=== PATIENT | female | born 1950 | race Caucasian/White ===

== ENCOUNTER → 2021-12-02 13:45 | Outpatient (BNVA) | payer MEDICARE, OTHER, SELFPAY | PROVIDERS: Family Provider Family Medicine; PCP Family Medicine; Visit Provider Clinical Nurse Specialist Adult Health | DX: N39.0 Urinary tract infection, site not specified (principal) | CPT/HCPCS: 81000; 87077; 87086; 87184 ==

== ENCOUNTER → 2022-08-18 12:06 | Outpatient (BNVA) | payer MEDICARE, OTHER, SELFPAY | PROVIDERS: Family Provider Family Medicine; PCP Family Medicine; Visit Provider Nurse Practitioner Family | DX: M79.671 Pain in right foot (principal) | CPT/HCPCS: 73630 ==

== ENCOUNTER → 2022-09-30 10:04 | Outpatient (BNVA) | payer MEDICARE, OTHER, SELFPAY | PROVIDERS: Family Provider Family Medicine; PCP Family Medicine; Visit Provider Specialist | DX: M79.671 Pain in right foot (principal); M25.571 Pain in right ankle and joints of right foot | CPT/HCPCS: 73630; 99204 ==

== ENCOUNTER → 2022-10-05 12:04 | Outpatient (BNVA) | payer MEDICARE, OTHER, SELFPAY | PROVIDERS: Family Provider Family Medicine; PCP Family Medicine; Visit Provider Family Medicine | DX: R00.2 Palpitations (principal); I10 Essential (primary) hypertension; E78.5 Hyperlipidemia, unspecified | CPT/HCPCS: 80053; 80061; 83735; 84443; 85025 ==

== ENCOUNTER 2022-10-07 07:17 | Outpatient (CLI) | payer MEDICARE, OTHER, SELFPAY ==
--- NOTE | 2022-10-07 07:30 | CT_ITS ---
WS: [id number] CT RIGHT FOOT, NONCONTRAST. HISTORY: right foot pain Technique: All CT scans at [facility] use at least one of these dose optimization techniques: automated exposure control; mA and/or kV adjustment per patient size (includes targeted exams where dose is matched to clinical indication); or iterative reconstruction. DLP: 109.85 mGy.cm COMPARISON: 09/30/2022 No acute fractures. No dislocation. No osteochondral lesions involving the talar dome. Normal tibiota lar alignment. There is a small calcaneal spur measuring 5 mm. No joint effusion. No significant soft tissue edema surrounding the foot. No foreign body. No widening of the Lisfranc joint. CT/CT foot RT wo con* [id number] IMPRESSION: 1. Unremarkable CT RIGHT foot. No acute findings identified. 2. No bony subluxation. 3. Small calcaneal spur.
== END 2022-10-07 07:18 | disposition home or self-care (01) ==
LOC: RAD 07:24
PROVIDERS: Family Provider Family Medicine; PCP Family Medicine; Visit Provider Specialist
DX: M79.671 Pain in right foot (principal); M77.31 Calcaneal spur, right foot
CPT/HCPCS: 73700

== ENCOUNTER → 2022-10-21 15:01 | Outpatient (BNVA) | payer MEDICARE, OTHER, SELFPAY | PROVIDERS: Family Provider Family Medicine; PCP Family Medicine; Visit Provider Specialist | DX: M25.571 Pain in right ankle and joints of right foot (principal) | CPT/HCPCS: 99213 ==

== ENCOUNTER 2022-11-20 10:20 | Outpatient (RCR) | payer MEDICARE, OTHER, SELFPAY | END 2022-11-20 23:59 | disposition home or self-care (01) | LOC: SPT 10:20 | PROVIDERS: PCP Specialist; Visit Provider Specialist | DX: M79.671 Pain in right foot (principal) | CPT/HCPCS: 97140; 97161 ==

== ENCOUNTER → 2023-01-08 08:26 | Outpatient (BNVA) | payer MEDICARE, OTHER, SELFPAY | PROVIDERS: PCP Family Medicine; Visit Provider Family Medicine | DX: G25.81 Restless legs syndrome (principal); M79.606 Pain in leg, unspecified; D64.9 Anemia, unspecified; M89.8X9 Other specified disorders of bone, unspecified site; R32 Unspecified urinary incontinence | CPT/HCPCS: 80048; 81000; 82306; 82728; 83735 ==

== ENCOUNTER 2023-04-09 09:05 | Outpatient (CLI) | payer MEDICARE, OTHER, SELFPAY ==
--- NOTE | 2023-04-09 09:30 | US_ITS ---
WS: [id number] THYROID ULTRASOUND HISTORY: globus sensation COMPARISON: None available. Right lobe: 1.2 cm x 1.6 cm x 3.6 cm (w x ap x l). Volume: 3.7 cm3. Normal size and mild heterogeneous echotexture. No significant or dominant nodules are present. Left lobe: 1.0 cm x 1.4 cm x 3.7 cm (w x ap x l). Volume: 2.6 cm3. Mild heterogeneity and lobulation. No discrete mass. No increased vascularity. Isthmus: 0.3 cm. IMPRESSION: 1. Mild heterogeneity within the thyroid gland. There is no mass or nodule. 2. No increased vascularity.
== END 2023-04-09 09:06 | disposition home or self-care (01) ==
LOC: RAD 09:06
PROVIDERS: PCP Family Medicine; Visit Provider Family Medicine
DX: R09.A2 Foreign body sensation, throat (principal)
CPT/HCPCS: 76536

== ENCOUNTER → 2023-04-20 11:04 | Outpatient (BNVA) | payer MEDICARE, OTHER, SELFPAY | PROVIDERS: PCP Family Medicine; Referring Provider Family Medicine; Visit Provider Surgery | DX: R09.A2 Foreign body sensation, throat (principal) | CPT/HCPCS: 99203 ==

== ENCOUNTER 2023-05-26 06:48 | Day surgery (SDC) | payer MEDICARE, OTHER, SELFPAY ==
[2023-05-26 07:07] VITALS: BP 187/96; PULSE 88; RESP 18; TEMP 36.9; O2SAT 98
[2023-05-26] MEDS: sodium chloride 0.9% 1,000 ML 30 ML IV (07:18)
--- NOTE | 2023-05-26 07:33 | ANES.PREANE2 ---
Pre-Anesthetic Assessment Height/Weight: Height 1.56 m Weight 75.75 kg Temp Pulse Resp BP Pulse Ox O2 Del Method 98.4 F 88 18 187/96 98 Room Air 05/26/23 07:07 05/26/23 07:07 05/26/23 07:07 05/26/23 07:07 05/26/23 07:07 05/26/23 07:07 Preop Diagnosis: Globus sensation Operation Date: 05/26/23 08:00 Proposed Procedures p [id number] egd w/balloon dilation R09.A2(Not Applicable) - Henri Scott DO Familial anesthetic complications: None Was Beta Rogelio taken within 24 hours: N/A (States she doesn't take her metoprolol unless high BP) Was Clonidine taken within 24 hours: N/A Last intake: Intake Last Liquid Date 05/25/23 Last Liquid Time 22:00 Last Solid Date 05/25/23 Last Solid Time 19:00 Social No alcohol and No tobacco Exam alert, oriented x 3, clear to auscultation bilaterally and regular rate & rhythm Airway Submandibular: within normal limits Cervical ROM: within normal limits Mallampati: Class II Dentition: chipped and full History/ROS No significant history except as noted and No significant complaints Pulmonary Bronchitis April 2023 CV/HEM Hypertension and Palpitations None reported Hepatic None reported GI Gastroesophageal Reflux Disease (None when taking meds) Metabolic Hyperlipidemia Musc/skel Lower Back Pain and Osteoarthritis/DJD Neuropsych Cerebrovascular Accident (6 years ago, no deficits) Anesthetic Plan ASA status: 3 Anesthesia: Anesthesia Evaluation, General and MAC Risk of > 500 ml blood loss (7ml/kg in children): No Medications/Allergies Home Medications Medication Instructions Recorded Confirmed Last Taken Type aspirin 325 mg tablet 325 mg PO DAILY 09/30/22 05/26/23 05/23/23 History metoprolol succinate 25 mg 12.5 mg (1/2 x 25 mg) PO DAILY #90 01/12/23 05/26/23 05/25/23 Rx tablet,extended release 24 hr tabs pantoprazole 40 mg tablet,delayed 40 mg PO BID 6 weeks #84 tabs 04/20/23 05/26/23 05/25/23 Rx release (Protonix) atorvastatin 40 mg tablet 40 mg PO DAILY 05/21/23 05/26/23 05/25/23 History lisinopril 20 1 tab PO DAILY 05/21/23 05/26/23 05/25/23 History mg-hydrochlorothiazide 12.5 mg tablet Allergies Allergy/AdvReac Type Severity Reaction Status Date / Time No Known Allergies Allergy Verified 04/27/23 15:04 Current Medications Generic Name Dose Route Start Last Admin Trade Name Freq PRN Reason Stop Dose Admin Sodium Chloride 1,000 mls @ 30 mls/hr 05/26/23 07:00 05/26/23 07:18 Sodium Chloride 0.9% IV 05/27/23 06:59 30 mls/hr .Q24H CLARE Administration PFSH Anesthesia Medical History History of CVA (cerebrovascular accident) Hyperlipidemia Hypertension Palpitations Surgical History History of cholecystectomy Family History Father Diabetes CAD (coronary artery disease) Denies family history of Chronic kidney disease (CKD) Cancer Stroke Social History Smoking and tobacco/nicotine status: never used tobacco/nicotine Alcohol intake: never Substance/Drug Use: never Household members: spouse Marital status details: in 1970 Number of children: 2 Current occupational status: employed Current occupation: [employer] 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
--- NOTE | 2023-05-26 08:14 | P.HP_ITS ---
Providers/Chief Complaint Primary Care Provider: Harriett Gutiérrez MD Chief Complaint: R09.A2 History of Present Illness Payton Gonzalez is a 72 year old female here for EGD Review of Systems General: Reports: 10 or more systems reviewed and unremarkable except in HPI and below Medications/Allergies Home Medications Medication Instructions Recorded Confirmed Last Taken Type aspirin 325 mg tablet 325 mg PO DAILY 09/30/22 05/26/23 05/23/23 History metoprolol succinate 25 mg 12.5 mg (1/2 x 25 mg) PO DAILY #90 01/12/23 05/26/23 05/25/23 Rx tablet,extended release 24 hr tabs pantoprazole 40 mg tablet,delayed 40 mg PO BID 6 weeks #84 tabs 04/20/23 05/26/23 05/25/23 Rx release (Protonix) atorvastatin 40 mg tablet 40 mg PO DAILY 05/21/23 05/26/23 05/25/23 History lisinopril 20 1 tab PO DAILY 05/21/23 05/26/23 05/25/23 History mg-hydrochlorothiazide 12.5 mg tablet Allergies Allergy/AdvReac Type Severity Reaction Status Date / Time No Known Allergies Allergy Verified 04/27/23 15:04 PFSH Acute PFSH: Medical History History of CVA (cerebrovascular accident) Hyperlipidemia Hypertension Palpitations Surgical History History of cholecystectomy Family History Father Diabetes CAD (coronary artery disease) Denies family history of Chronic kidney disease (CKD) Cancer Stroke Social History Smoking and tobacco/nicotine status: never used tobacco/nicotine Alcohol intake: never Substance/Drug Use: never Household members: spouse Marital status details: in 1970 Number of children: 2 Current occupational status: employed Current occupation: [employer] 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
[2023-05-26 08:32] VITALS: BP 112/69; PULSE 87; RESP 16; TEMP 36.2; O2SAT 94
[2023-05-26 08:43] VITALS: BP 131/57; PULSE 79; RESP 16; O2SAT 95
--- NOTE | 2023-05-26 16:33 | ANE.PACU2 ---
Inpatient post-anesthesia follow up: Airway intact: Yes Vital signs: Temperature 97.1 F Pulse Rate 79 Respiratory Rate 16 Blood Pressure 131/57 Pulse Oximetry 95 Oxygen Delivery Me thod Room Air Oxygen Flow Rate Fraction of Inspir ed Oxygen Hydration adequate: Yes Nausea and vomiting: No Pain level: 2 Mental status: Baseline
== END 2023-05-26 09:05 | disposition home or self-care (01) ==
PROVIDERS: PCP Family Medicine; Visit Provider Surgery
DX: R09.A2 Foreign body sensation, throat (principal); K21.00 Gastro-esophageal reflux disease with esophagitis, without bleeding; K22.2 Esophageal obstruction; K44.9 Diaphragmatic hernia without obstruction or gangrene; K29.70 Gastritis, unspecified, without bleeding; I10 Essential (primary) hypertension; E78.5 Hyperlipidemia, unspecified; Z86.73 Personal history of transient ischemic attack (TIA), and cerebral infarction without residual deficits; Z79.82 Long term (current) use of aspirin
CPT/HCPCS: 43239; 43249; 88305; 88312; J2704; J7030

== ENCOUNTER → 2023-06-15 09:12 | Outpatient (BNVA) | payer MEDICARE, OTHER, SELFPAY | PROVIDERS: PCP Family Medicine; Visit Provider Surgery | DX: K22.2 Esophageal obstruction (principal); K21.00 Gastro-esophageal reflux disease with esophagitis, without bleeding; R09.A2 Foreign body sensation, throat | CPT/HCPCS: 99214 ==

== ENCOUNTER → 2023-08-24 07:57 | Outpatient (BNVA) | payer MEDICARE, OTHER, SELFPAY | PROVIDERS: PCP Family Medicine; Visit Provider Family Medicine | DX: R39.9 Unspecified symptoms and signs involving the genitourinary system (principal) | CPT/HCPCS: 81000 ==

== ENCOUNTER → 2023-09-03 13:03 | Outpatient (BNVA) | payer MEDICARE, OTHER, SELFPAY | PROVIDERS: PCP Family Medicine; Visit Provider Family Medicine | DX: M79.10 Myalgia, unspecified site (principal); N39.0 Urinary tract infection, site not specified; R53.83 Other fatigue; Z79.899 Other long term (current) drug therapy | CPT/HCPCS: 80053; 82306; 83735; 84443; 85025 ==

== ENCOUNTER → 2023-09-06 07:31 | Outpatient (BNVA) | payer MEDICARE, OTHER, SELFPAY | PROVIDERS: PCP Family Medicine; Visit Provider Family Medicine | DX: M79.10 Myalgia, unspecified site (principal); N39.0 Urinary tract infection, site not specified; R53.83 Other fatigue | CPT/HCPCS: 81000 ==

== ENCOUNTER → 2024-05-13 10:32 | Outpatient (BNVA) | payer MEDICARE, OTHER, SELFPAY | PROVIDERS: PCP Family Medicine | DX: R39.9 Unspecified symptoms and signs involving the genitourinary system (principal) | CPT/HCPCS: 81000 ==

== ENCOUNTER → 2024-09-19 13:55 | Outpatient (BNVA) | payer MEDICARE, OTHER, SELFPAY | PROVIDERS: PCP Family Medicine; Visit Provider Family Medicine | DX: I10 Essential (primary) hypertension (principal); R00.2 Palpitations; E78.5 Hyperlipidemia, unspecified | CPT/HCPCS: 80053; 80061; 83735; 84443; 85025 ==

== ENCOUNTER → 2025-01-10 08:10 | Outpatient (BNVA) | payer MEDICARE, OTHER, SELFPAY | PROVIDERS: PCP Family Medicine; Visit Provider Family Medicine Adult Medicine | DX: N39.0 Urinary tract infection, site not specified (principal) | CPT/HCPCS: 81000 ==